=== PATIENT | male | born 1940 | race Caucasian/White ===

== ENCOUNTER 2021-06-09 11:48 | Emergency (ER) | payer MEDICARE, SELFPAY ==
[2021-06-09 12:04] VITALS: BP 141/53; PULSE 59; RESP 20; TEMP 36.5; O2SAT 98
--- NOTE | 2021-06-09 12:17 | ED.EAR ---
HPI - Ear Problem General Chief complaint: Ear Stated complaint: Ear Pain Time Seen by Provider: 06/09/21 12:18 Source: patient Mode of arrival: ambulatory Limitations: no limitations History of Present Illness HPI Narrative: LEFT EAR PAIN AND THE FEELING OF FULLNESS NO DRAINAGE NO FEVER NO URI SYMPTOMS MD Complaint: ear pain Location: left ear Related Data Home Medications Medication Instructions Recorded Confirmed aspirin 81 mg tablet,delayed 81 mg PO DAILY 11/23/20 06/09/21 release glimepiride 4 mg tablet 4 mg PO BID tablet 11/23/20 06/09/21 hydrocodone 7.5 mg-acetaminophen 3 tablet PO DAILY tablet 11/23/20 06/09/21 300 mg tablet metformin 1,000 mg tablet 1,000 mg PO BID 11/23/20 06/09/21 simvastatin 10 mg tablet 10 mg PO DAILY 11/23/20 06/09/21 tamsulosin 0.4 mg capsule 0.4 mg PO DAILY 11/23/20 06/09/21 terazosin 10 mg capsule 10 mg PO DAILY 11/23/20 06/09/21 finasteride 5 mg PO DAILY 06/09/21 06/09/21 tadalafil 1 mg PO DAILY 06/09/21 06/09/21 testosterone cypionate 1 mg IM WEEKLY 06/09/21 06/09/21 Allergies Allergy/AdvReac Type Severity Reaction Status Date / Time Penicillins Allergy Severe SWELLING Verified 06/09/21 12:15 TEEN Review of Systems Review of Systems: CONSTITUTIONAL: Denies fever, chills, or sweats. EYES: Denies visual changes, redness, or discharge. ENT: Denies rhinorrhea, congestion, sore throat, or otalgia. CARDIOVASCULAR: Denies chest pain, palpitations, or edema. RESPIRATORY: Denies cough or dyspnea. GASTROINTESTINAL: Denies abdominal pain, nausea, vomiting, or diarrhea. GENITOURINARY: Denies dysuria or hematuria. SKIN: Denies rash or itching. MUSCULOSKELETAL: Denies back pain, joint pain, or myalgia. NEUROLOGIC: Denies headache, numbness, or weakness. PSYCHIATRIC: Denies anxiety or depression. Allergic/Immunologic: Comments: At time of signature, agree with nursing past medical, surgical, social and family history. There is no relevant family history pertinent to the presenting complaint [facility] Social History Social History (Updated 11/23/20 @ 08:58 by Rosangela Snow MA) Smoking status: Never smoker Alcohol intake: current Substance use: never Exam Narrative: GENERAL: Well-appearing, well-nourished, and in no acute distress. HEAD: Normocephalic, atraumatic. EYES: PERRLA and EOMI. ENT: Nares clear, no rhinorrhea or epistaxis. Mucous membranes moist.LEFT TM [place]PAQUE MODERATE ERYTHEMA TO CANAL RIGHT TM DULLNESS NECK: Supple. CHEST: Clear to auscultation. No respiratory distress. HEART: Regular rate and rhythm. No murmur heard. Normal peripheral pulses. ABDOMEN: Soft, nontender, nondistended, normal active bowel sounds. EXTREMITIES: Normal range of motion. No edema. SKIN: Warm, dry, no rash. NEURO: No focal deficits. Alert and oriented x3. [place] Coma Scale Eye Opening: Spontaneous 4 [place] Coma Scale Motor: Obeys Commands 6 Raj Coma Scale Verbal: Oriented 5 Raj Coma Scale Total 15 Course Vital Signs Vital signs: Vital Signs Temperature 36.5 C 06/09/21 12:04 Pulse Rate 59 L 06/09/21 12:04 Respiratory Rate 20 06/09/21 12:04 Blood Pressure 141/53 H 06/09/21 12:04 Pulse Oximetry 98 06/09/21 12:04 Temperature 36.5 C 06/09/21 12:04 Pulse Rate 59 L 06/09/21 12:04 Respiratory Rate 20 06/09/21 12:04 Blood Pressure 141/53 H 06/09/21 12:04 Pulse Oximetry 98 06/09/21 12:04 Addressed elevated BP today. Today's blood pressure higher than recommended range. Discussed importance of follow -up with PCP and possible custodial effects/cardiovascular events related to HTN. Currently patient denies headache, dizziness, vision changes, CP or shortness of breath. Medical Decision Making Vital Signs Vital Signs: Vital Signs Temperature 36.5 C 06/09/21 12:04 Pulse Rate 59 L 06/09/21 12:04 Respiratory Rate 20 06/09/21 12:04 Blood Pressure 141/53 H 06/09/21 12:04 Pulse Oximetry 98 06/09/21 12:04 Temperatu
== END 2021-06-09 12:31 | disposition home or self-care (01) ==
PROVIDERS: Emergency Provider Nurse Practitioner Family
DX: H66.92 Otitis media, unspecified, left ear (principal)
CPT/HCPCS: 99213; G0463

== ENCOUNTER 2021-09-30 14:37 | Emergency (ER) | payer MEDICARE, SELFPAY ==
[2021-09-30 14:44] VITALS: BP 155/61; PULSE 69; RESP 20; TEMP 36.6; O2SAT 98
--- NOTE | 2021-09-30 14:45 | ED.GENADULT ---
HPI - General Adult General Chief complaint: Unspecified Stated complaint: blood sugar very high Time Seen by Provider: 09/30/21 14:46 Source: patient and RN notes reviewed History of Present Illness HPI narrative: Patient is 81-year-old male who presents the urgent care with complaints of elevated blood sugars, intermittent dizziness, and a few loose stools. Patient states that it started over the last couple days when he was not following his normal diet . Patient states that he had an increase in sugar and sweets. States that he is trying to back off with only eating soup today. Patient states that his last blood sugar prior to arrival was 279, 299 after eating. Patient currently denies of any abdominal pain or vomiting. Denies any recent fevers but states he has had some chills. Patient states his normal blood sugar sits at 140. Denies of any past cardiac or neurological abnormalities. No other acute complaints. No acute distress noted. Patient aware of the plan of care. Some parts of this dictation were generated by voice recognition software and may contain typographical and/or grammatical inaccuracies. Related Data Home Medications Medication Instructions Recorded Confirmed aspirin 81 mg tablet,delayed 81 mg PO DAILY 11/23/20 09/30/21 release glimepiride 4 mg tablet 4 mg PO BID tablet 11/23/20 09/30/21 metformin 1,000 mg tablet 1,000 mg PO BID 11/23/20 09/30/21 simvastatin 10 mg tablet 10 mg PO DAILY 11/23/20 09/30/21 tamsulosin 0.4 mg capsule 0.4 mg PO DAILY 11/23/20 09/30/21 terazosin 10 mg capsule 10 mg PO DAILY 11/23/20 09/30/21 finasteride 5 mg PO DAILY 06/09/21 09/30/21 tadalafil 1 mg PO DAILY 06/09/21 09/30/21 testosterone cypionate 1 mg IM WEEKLY 06/09/21 09/30/21 hydrocodone 7.5 mg-acetaminophen 1 tablet PO Q8H PRN 09/11/21 09/30/21 325 mg tablet Allergies Allergy/AdvReac Type Severity Reaction Status Date / Time Penicillins Allergy Severe SWELLING Verified 09/30/21 15:01 TEEN Review of Systems Review of Systems: CONSTITUTIONAL: Denies fever, chills, or sweats. EYES: Denies visual changes, redness, or discharge. ENT: Denies rhinorrhea, congestion, sore throat, or otalgia. CARDIOVASCULAR: Denies chest pain, palpitations, or edema. RESPIRATORY: Denies cough or dyspnea. GASTROINTESTINAL: Denies abdominal pain, nausea, vomiting. Reports of a few episodes of loose stools GENITOURINARY: Denies dysuria or hematuria. SKIN: Denies rash or itching. MUSCULOSKELETAL: Denies back pain, joint pain, or myalgia. NEUROLOGIC: Reports of intermittent dizziness denies headache, numbness, or weakness. All other systems reviewed are negative, except as documented in HPI. [facility] Social History Social History Smoking status: Never smoker Alcohol intake: current Substance use: never Comments At the time of my signature, I reviewed and agree with the nursing past medical, surgical, social, and family history. There is no relevant family history pertinent to the patient complaint. Exam Narrative: GENERAL: This is a well-nourished, well-developed patient, in no apparent distress. HEAD: normocephalic, atraumatic. EYES: PERRL. Sclera clear/white. Vision is grossly intact. EARS: External ears normal, auditory canals clear and without drainage, TMs normal without perforation. Hearing grossly intact. NOSE: External nose normal with no obvious nasal discharge, nares without redness, no rhinorrhea. THROAT: Mucous membranes moist NECK: Neck supple CARDIOVASCULAR: Regular rate and rhythm without murmurs, gallops, or rubs. RESPIRATORY: Clear to auscultation. Diminished throughout. No wheezes rales or rhonchi SKIN: No open sores or wounds noted to the bottom of the soles. Warm, intact with no suspicious lesions or rash, good texture and turgor. NEURO: awake, alert, and oriented to person, place and time. There were no obvious focal neurologic abnormalities
[2021-09-30 14:58] LABS: Glucose Point of Care 253 mg/dl (65-105)
== END 2021-09-30 15:20 | disposition home or self-care (01) ==
PROVIDERS: Emergency Provider Nurse Practitioner Family; PCP Hospitalist
DX: E11.65 Type 2 diabetes mellitus with hyperglycemia (principal); I10 Essential (primary) hypertension
CPT/HCPCS: 81003; 82948; 99212; G0463